=== PATIENT | male | born 1945 | race Caucasian/White ===

== ENCOUNTER → 2017-07-31 | Day surgery (SDC) | payer OTHER ==
[~2017-07-31] MED LIST: ACETAMINOPHEN 500 MG TAB PO ONE; ACETAMINOPHEN 500 MG TAB PO SCH; ATORVASTATIN CALCIUM 20 MG TAB PO SCH; BACITRACIN 50,000 UNITS/10 ML SYR IRR ONE; BISACODYL 10 MG SUPP PR PRN; BUPIVACAINE 0.25% 30 ML SDV ONE; DEXAMETHASONE 4 MG/ML VIAL ONE; ENOXAPARIN 40 MG/0.4 ML SYR SC SCH; FAMOTIDINE 20 MG TAB PO SCH; GABAPENTIN 300 MG CAP PO ONE; GABAPENTIN 300 MG CAP PO SCH; HYDROCODONE/APAP 5/325 TAB PO PRN; HYDROmorphONE/DILAUDID 1 MG/ML INJ IVP PRN; HYDROmorphONE/DILAUDID 2 MG/ML INJ ONE; HYDROmorphONE/DILAUDID 6 MG/30 ML PCA IV PRN; LACTULOSE 20 GM/30 ML UDCUP PO PRN; LIDOCAINE 1% 2 ML INJ ID PRN; LR 1,000 ML IV ONE; MAGNESIUM HYDROXIDE 30 ML UDCUP PO PRN; METHOCARBAMOL 750 MG TAB PO PRN; MIDAZOLAM 2 MG/2 ML VIAL IVP ONE; NALOXONE HCL 0.4 MG/ML INJ IVP PRN; NIACIN 500 MG TAB PO SCH; NS W/ 20 KCl/L 1,000 ML IV SCH; ONDANSETRON 4 MG/2 ML VIAL IVP PRN; ONDANSETRON 4 MG/2 ML VIAL ONE; ONDANSETRON DISINTEGRATING 4 MG TAB PO PRN; POLYETHYLENE GLYCOL 3350 17 GM PKT PO PRN; PROPOFOL 200 MG/20 ML VIAL ONE; ROCURONIUM 50 MG/5 ML VIAL ONE; SENNOSIDES/DOCUSATE SODIUM TAB PO SCH; THROMBIN (BOVINE) 20,000 UNIT VIAL TP ONE; ceFAZolin 2 GM/DEXTROSE 100 ML IV ONE; ceFAZolin 2 GM/DEXTROSE 100 ML IV SCH; diphenhydrAMINE 25 MG CAP PO PRN; fentaNYL 100 MCG/2 ML INJ ONE; oxyCODONE IR 5 MG TAB PO PRN
--- NOTE | 2017-07-31 06:46 | PDHPUP ---
History & Physical Update H&P update statement: This history and physical update is based on an assessment of the patient which was completed after admission or registration (within 24 hours), but prior to the surgery/procedure. H&P update: H&P reviewed & patient examined, no change in patient's condition since H&P completed
--- NOTE | 2017-07-31 12:47 | PDANEPAE ---
ANE History of Present Illness cervical spine stenosis ANE Past Medical History - Cardiovascular History Hx Hypertension: Yes Hx Arrhythmias: No Hx Chest Pain: No Hx Coronary Artery / Peripheral Vascular Disease: No Hx CHF / Valvular Disease: Yes Hx Palpitations: No Cardiovascular History Comment: AORTIC STENOSIS - Pulmonary History Hx COPD: No Hx Asthma/Reactive Airway Disease: No Hx Recent Upper Respiratory Infection: No Hx Oxygen in Use at Home: No Hx Sleep Apnea: No Sleep Apnea Screening Result - Last Documented: Positive - Neurologic History Hx Cerebrovascular Accident: No Hx Seizures: No Hx Dementia: No - Endocrine History Hx Diabetes: No - Renal History Hx Renal Disorders: No Renal History Comment: NOCTURIA - Liver History Hx Hepatic Disorders: No - Neurological & Psychiatric Hx Hx Neurological and Psychiatric Disorders: No - Cancer History Hx Cancer: Yes Cancer History Comment: PULMONARY SARCOIDOSIS - Congenital Disorder History Hx Congenital Disorders: No - GI History Hx Gastrointestinal Disorders: No - Other Health History Other Health History: ROSACEA. BALANCE ISSUES - Chronic Pain History Chronic Pain: Yes (CERVICAL,TIMOTHY SHLDRS,NT IN FINGERS) - Surgical History Prior Surgeries: TIMOTHY KNEE ARTHROSCOPY. REMVL PULMONARY SARCOIDOSIS 1974 ANE Review of Systems Review of Systems: - Exercise capacity METS (RN): 4 METS ANE Patient History - Allergies Allergies/Adverse Reactions: No Known Allergies Allergy (Unverified 07/26/17 10:20) - Home Medications Home Medications: Aspirin [Aspirin 81mg (*)] 81 mg PO DAILY 07/26/17 [Last Taken Unknown] Atorvastatin Calcium [Lipitor 20 mg (*)] 20 mg PO DAILY 07/26/17 [Last Taken Unknown] Azelaic Acid [Finacea] 1 riri TP DAILY 07/26/17 [Last Taken Unknown] Glucosamine Sulfate [Glucosamine Sulfate 500 MG (*)] 500 mg PO DAILY 07/26/17 [ Last Taken Unknown] Glucosamine/Chondroitin [Glucosamine/Chondroitin (*)] 1 each PO DAILY 07/26/17 [ Last Taken Unknown] Herbals/Supplements -Info Only 1 ea PO DAILY 07/26/17 [Last Taken Unknown] Multivitamins [Multivitamin (*)] 1 each PO DAILY 07/26/17 [Last Taken Unknown] Niacin [Niacin 500 mg (*)] 500 mg PO DAILY 07/26/17 [Last Taken Unknown] - Smoking Hx Smoking Status: Former smoker ANE Labs/Vital Signs - Vital Signs Height: 165.1 cm Weight: 63.503 kg ANE Physical Exam - Airway Neck exam: FROM Mallampati Score: Class 2 Mouth exam: normal dental/mouth exam - Pulmonary Pulmonary: no respiratory distress - Cardiovascular Cardiovascular: regular rate and rhythym - ASA Status ASA Status: III ANE Anesthesia Plan Anesthesia Plan: general endotracheal anesthesia
[2017-07-31 13:23] VITALS: BP 123/101; PULSE 75; RESP 16; TEMP 98.1; O2SAT 96
== END | disposition home or self-care (01) ==
LOC: F3N 11:28 → UNDOADMIN 11:28 → FSGY 11:28 → EDSTATUS 13:30
PROVIDERS: ATTEND Neurological Surgery
DX: G95.89 Other specified diseases of spinal cord (principal); M48.02 Spinal stenosis, cervical region; Z53.09 Procedure and treatment not carried out because of other contraindication
CPT/HCPCS: J0171; J0690; J1100; J1170; J2250; J2405; J2704; J3010

== ENCOUNTER 2017-08-14 05:24 | Inpatient (IN) | payer OTHER ==
[2017-08-14] MEDS ORDERED: ceFAZolin 2 GM/SWFI 2 GM/20 ML SYR IVP ONE (05:36)
[2017-08-14] MEDS ORDERED: LIDOCAINE 1% 2 ML INJ ID PRN (05:37)
[2017-08-14] MEDS ORDERED: LR 1,000 ML IV ONE (05:37)
[2017-08-14] MEDS ORDERED: BUPIVACAINE 0.25% 30 ML SDV ONE (06:44)
[2017-08-14] MEDS ORDERED: THROMBIN (BOVINE) 20,000 UNIT VIAL TP ONE (06:45)
[2017-08-14] MEDS ORDERED: GABAPENTIN 300 MG CAP PO ONE (06:45)
[2017-08-14] MEDS ORDERED: BACITRACIN 50,000 UNITS/10 ML SYR IRR ONE ×2 (06:45→11:09)
[2017-08-14] MEDS ORDERED: ACETAMINOPHEN 500 MG TAB PO ONE (06:45)
--- NOTE | 2017-08-14 07:01 | PDANEPAE ---
ANE Past Medical History - Cardiovascular History Hx Hypertension: Yes Hx Arrhythmias: No Hx Chest Pain: No Hx Coronary Artery / Peripheral Vascular Disease: No Hx CHF / Valvular Disease: Yes Hx Palpitations: No Cardiovascular History Comment: AORTIC STENOSIS - Pulmonary History Hx COPD: No Hx Asthma/Reactive Airway Disease: No Hx Recent Upper Respiratory Infection: No Hx Oxygen in Use at Home: No Hx Sleep Apnea: No Sleep Apnea Screening Result - Last Documented: Positive Pulmonary History Comment: cristela triggers only. pulmonary sarcoidosis - Neurologic History Hx Cerebrovascular Accident: No Hx Seizures: No Hx Dementia: No - Endocrine History Hx Diabetes: No - Renal History Hx Renal Disorders: Yes Renal History Comment: NOCTURIA - Liver History Hx Hepatic Disorders: No - Neurological & Psychiatric Hx Hx Neurological and Psychiatric Disorders: No - Cancer History Hx Cancer: No Cancer History Comment: PULMONARY SARCOIDOSIS - Congenital Disorder History Hx Congenital Disorders: No - GI History Hx Gastrointestinal Disorders: No - Other Health History Other Health History: ROSACEA. wears glasses - Chronic Pain History Chronic Pain: Yes (CERVICAL,TIMOTHY SHLDRS,NT IN FINGERS) - Surgical History Prior Surgeries: TIMOTHY KNEE ARTHROSCOPY. REMVL PULMONARY SARCOIDOSIS 1974 ANE Review of Systems Review of Systems: - Exercise capacity METS (RN): 4 METS ANE Patient History - Allergies Allergies/Adverse Reactions: No Known Allergies Allergy (Verified 08/06/17 11:45) - Home Medications Home Medications: Aspirin [Aspirin 81mg (*)] 81 mg PO DAILY 07/26/17 [Last Taken 07/26/17] Atorvastatin Calcium [Lipitor 20 mg (*)] 20 mg PO DAILY 07/26/17 [Last Taken 04:00] Azelaic Acid [Finacea] 1 riri TP DAILY 07/26/17 [Last Taken 08/14/17 04:00] Glucosamine Sulfate [Glucosamine Sulfate 500 MG (*)] 500 mg PO DAILY 07/26/17 [ Last Taken Unknown] Glucosamine/Chondroitin [Glucosamine/Chondroitin (*)] 1 each PO DAILY 07/26/17 [ Last Taken Unknown] Herbals/Supplements -Info Only 1 ea PO DAILY 07/26/17 [Last Taken Unknown] Multivitamins [Multivitamin (*)] 1 each PO DAILY 07/26/17 [Last Taken Unknown] Niacin [Niacin 500 mg (*)] 500 mg PO DAILY 07/26/17 [Last Taken 07/14/17] - NPO status NPO Since - Liquids (Date): 08/13/17 NPO Since - Liquids (Time): 22:00 NPO Since - Solids (Date): 08/13/17 NPO Since - Solids (Time): 22:00 - Smoking Hx Smoking Status: Former smoker - Family Anes Hx Family Hx Anesthesia Complications: none ANE Labs/Vital Signs - Vital Signs Blood Pressure: 171/87 Heart Rate: 70 Respiratory Rate: 16 O2 Sat (%): 96 Height: 165.1 cm Weight: 63.503 kg ANE Physical Exam - Airway Mallampati Score: Class 2 - ASA Status ASA Status: II ANE Anesthesia Plan Anesthesia Plan: general endotracheal anesthesia
[2017-08-14] MEDS ORDERED: MIDAZOLAM 2 MG/2 ML VIAL ONE (07:14)
[2017-08-14] MEDS ORDERED: fentaNYL 100 MCG/2 ML INJ ONE ×3 (07:14→12:27)
[2017-08-14] MEDS ORDERED: PROPOFOL 200 MG/20 ML VIAL ONE (07:15)
[2017-08-14] MEDS ORDERED: PROPOFOL/EMULSION 500 MG/50 ML BOTTLE IV ONE ×2 (07:15→10:00)
[2017-08-14] MEDS ORDERED: ONDANSETRON 4 MG/2 ML VIAL ONE (07:20)
[2017-08-14] MEDS ORDERED: ROCURONIUM 50 MG/5 ML VIAL ONE (07:20)
[2017-08-14] MEDS ORDERED: METOCLOPRAMIDE 10 MG/2 ML VIAL ONE (07:20)
[2017-08-14] MEDS ORDERED: ONDANSETRON DISINTEGRATING 4 MG TAB PO PRN (07:26)
[2017-08-14] MEDS ORDERED: oxyCODONE IR 5 MG TAB PO PRN (07:26)
[2017-08-14] MEDS ORDERED: NALOXONE HCL 0.4 MG/ML INJ IVP PRN ×2 (07:26→12:05)
[2017-08-14] MEDS ORDERED: METHOCARBAMOL 750 MG TAB PO PRN (07:26)
[2017-08-14] MEDS ORDERED: LACTULOSE 20 GM/30 ML UDCUP PO PRN (07:26)
[2017-08-14] MEDS ORDERED: HYDROmorphONE/DILAUDID 1 MG/ML INJ IVP PRN (07:26)
[2017-08-14] MEDS ORDERED: diphenhydrAMINE 25 MG CAP PO PRN (07:26)
[2017-08-14] MEDS ORDERED: ONDANSETRON 4 MG/2 ML VIAL IVP PRN (07:26)
[2017-08-14] MEDS ORDERED: POLYETHYLENE GLYCOL 3350 17 GM PKT PO PRN (07:26)
[2017-08-14] MEDS ORDERED: HYDROmorphONE/DILAUDID 6 MG/30 ML PCA IV PRN (07:26)
[2017-08-14] MEDS ORDERED: HYDROCODONE/APAP 5/325 TAB PO PRN (07:26)
[2017-08-14] MEDS ORDERED: BISACODYL 10 MG SUPP PR PRN (07:26)
[2017-08-14] MEDS ORDERED: NS W/ 20 KCl/L 1,000 ML IV SCH (07:30)
[2017-08-14] MEDS ORDERED: HYDROmorphone HCL/NS/PF 0.4 MG/2 ML SYR IVP PRN (08:30)
--- NOTE | 2017-08-14 08:55 | GOP ---
[f rep st] OPERATIVE REPORT DATE OF OPERATION: SURGEON: Omkar Pelayo MD PREOPERATIVE DIAGNOSIS: POSTOPERATIVE DIAGNOSIS: PROCEDURE PERFORMED: FINDINGS: DESCRIPTION OF PROCEDURE: This is a gentleman who is admitted and undergone general anesthesia for back surgery and had a diffi cult catheterization, so they request that I see him. Upon visiting the operating room, the patient was asleep and intubated and he had blood per urethra coming, and so at that point, I elected to do a cystoscopy to identify and recognize the urethral anatomy. And after evacuating the clot from his u rethra with a flexible cystoscope, it noted he had a false passage in the prostatic urethra. I was a ble to negotiate beyond that into the bladder. The bladder had blood in it and it was not possible f or me to get a good visualization of the bladder in total, but I was able to pass a 0.035 guidewire i nto the bladder through the scope and then a Councill-tip catheter was passed over that and into the bladder and the bladder drained well. A 10 cc balloon inflated. I did send a routine urine culture. He had received antibiotics prior to this procedure. The only report from a genitourinary standpoi nt, is has had nocturia. At the present time, we would recommend he have follow up with us as an out patient. I would recommend that he be ambulating prior to removing his catheter, since catheterizati on may be difficult if he has to go into retention and has to have another problem. Also significanc e on exam, he appeared he had an abdominal mass that was approximately 5 cm in diameter. It was felt that it may be related to his colon and would recommend further assessment evaluation postoperativel y. /[id number]/MODL
[2017-08-14] MEDS ORDERED: PROMETHAZINE HCL 25 MG/ML INJ IVP PRN (12:05)
[2017-08-14] MEDS ORDERED: fentaNYL 100 MCG/2 ML INJ IVP PRN (12:05)
[2017-08-14] MEDS ORDERED: LR 500 ML IV PRN (12:05)
--- NOTE | 2017-08-14 12:08 | POSTANESTH ---
Post Anesthetic Evaluation Cardiovascular Status: Normal, Stable Respiratory Status: Normal, Stable Level of Consciousness/Mental Status: Can Participate in Eval Pain Control: Adequate, Prn Tx Ordered Nausea/Vomiting Control: Adequate, Prn Tx Ordered Complications Possibly Related to Anesthesia: None Noted
[2017-08-14] MEDS ORDERED: hydrALAZINE 20 MG/ML VIAL IVP PRN ×2 (12:13→23:53)
--- NOTE | 2017-08-14 12:16 | SOAPPROG ---
SOAP Progress Note Assessment/Plan: Post Op Visit: S: Awake and alert. Pt with expected neck pain. O: AFVSS/PERRLA/EOMI no droop CN 2-12 grossly intact +lt touch 5/5 BUE/BLE = CDI A/P: 71 yo male that is s/p ACDF C3-C6 -orders in place -seen by Dr Crespo -Dr Pelayo placed a queen from urology and noted a "mass in the abd"-Dr Richards consulted -call with any questions or concerns -take medications as directed 08/14/17 12:13 Objective: Vital Signs Temp Pulse Resp BP Pulse Ox 36.6 C 70 16 171/87 H 96 08/14/17 06:19 08/14/17 07:00 08/14/17 07:00 08/14/17 07:00 08/14/17 07:00 ICD10 Worksheet Patient Problems: Problems Problem Status Onset Arthrodesis status Acute Cervical stenosis of spine Acute - ICD10 Problem Qualifiers (1) Cervical stenosis of spine (2) Arthrodesis status
[2017-08-14] MEDS ORDERED: hydrALAZINE 20 MG/ML VIAL ONE (12:38)
[2017-08-14] MEDS: SENNOSIDES/DOCUSATE SODIUM TAB PO SCH ×2 (13:46→22:18)
[2017-08-14] MEDS: AZELAIC ACID TP SCH (13:46)
[2017-08-14] MEDS: NIACIN 500 MG TAB PO SCH (13:46)
[2017-08-14] MEDS: ATORVASTATIN CALCIUM 20 MG TAB PO SCH (13:46)
[2017-08-14] MEDS: ceFAZolin 2 GM/DEXTROSE 100 ML IV SCH (15:05)
[2017-08-14] MEDS: TAMSULOSIN HCL 0.4 MG CAP PO SCH (15:05)
[2017-08-14] MEDS: GABAPENTIN 300 MG CAP PO SCH ×2 (15:05→22:18)
[2017-08-15] MEDS: ceFAZolin 2 GM/DEXTROSE 100 ML IV SCH (00:07)
--- NOTE | 2017-08-15 03:40 | GOP ---
[f rep st] OPERATIVE REPORT DATE OF OPERATION: 08/14/2017 SURGEON: Ida Crespo MD NEUROSURGEON: Cristi Crespo MD LAUNCH MANAGER: Emil Pacheco PA-C PREOPERATIVE DIAGNOSIS: Severe cervical spondylosis with cervical myelopathy, myelomalacia, and cord compression. POSTOPERATIVE DIAGNOSIS: Severe cervical spondylosis with cervical myelopathy, myelomalacia, and cor d compression. PROCEDURE PERFORMED: 1. Anterior cervical diskectomy with decompression and arthrodesis of the same levels, C3-4, C4-5, a nd C5-6 (71420 and 25097 x 2). 2. Anterior cervical instrumentation of 4 levels, C3, C4, C5, and C6 (69315). 3. Placement of biomechanical intervertebral device, C3-4, C4-5, and C5-6 (86294 x3). 4. Same incision bone graft harvest, microscope. FINDINGS: ESTIMATED BLOOD LOSS: 100 mL INDICATIONS: Chely is a 71-year-old gentleman with gait disturbance and left greater than right upp er extremity numbness and tingling. An MRI demonstrated evidence of cord compression and myelomalaci a in the cervical spinal cord. There was very severe stenosis at C3-4 and severe stenosis at C4-5 an d C5-6 as well as severe cervical spondylosis and degenerative disk disease. There was moderate sten osis at C6-7, but I suggested surgery at the top 3 levels. The risk of pseudoarthrosis, adjacent seg ment disease, and the need for future surgery was discussed. He knew there was risk of esophageal in jury, carotid injury, recurrent laryngeal nerve injury, hematoma, and the risk of swallowing dysfunct ion. He wanted to proceed, despite the risks. The patient had been previously scheduled 2 weeks myriam or to today, but unfortunately his n.p.o. status was compromised at the last surgery and he was delay ed by 2 weeks as we were unable to complete it. DESCRIPTION OF PROCEDURE: The patient was taken to the operating room, placed in the supine position , and general anesthesia was begun. A midline shoulder roll was placed. There was difficulty placin g the Fitzgerald catheter and Urology was consulted. They did place a Fitzgerald catheter and they felt that t here could be a possible abdominal mass as they were palpating the bladder. It was unclear if this w as simply stool in the colon or an abdominal mass and they suggested a general surgical consult follo wing surgery, which was done. His arms were tucked to the side. His neck was sterilely prepped and draped in the usual fashion. We made a transverse incision on the right side of the neck. The subcu taneous tissue was dissected with Bovie cautery down through the platysma. We then used a combinatio n of sharp and blunt dissection to work our way down to the prevertebral space. The dissection was s traightforward. We swept the omohyoid muscle inferiorly. We were able to visualize the C3-4, C4-5, and C5-6 levels easily on the x-ray that was taken. There was really remarkable bone spurs, particul navya at C4-5. We had dissected the longus colli muscles off the spine and then drilled away all the ventral spurs at C3-4, C4-5, and C5-6. We harvested these for autologous grafting purposes. We plac ed a distraction pin at C3-4 and distracted at C3-4. Under the operating microscope we removed the C 3-4 disk and its cartilaginous endplates completely. Motor and somatosensory-evoked potentials were checked throughout surgery and the left hand had very diminished responses throughout surgery, but ev en before beginning surgery the left hand was diminished. An arterial line had been placed to keep t he maps elevated, which was done at the beginning of surgery. We did completely remove the C3-4 disk and its cartilaginous endplates. We drilled and harvested subchondral bone for more autologous inna ting and drilled the uncinate processes and worked our way down the PLL, which we opened, and decompr essed the central thecal sac and the neural foramina bilaterally. We chose an 8 mm PEEK intervertebr al device, packed it with bone autograft, and inserted it at C3-4. A nice fit was obtained. We then moved our distraction pins and we did the exact same thing at C4-5 where we drilled and completely r emoved the disk and the cartilaginous endplates. We drilled subchondral bone from uncinate process t o uncinate process. We harvested the bone, opened the PLL, and decompressed the thecal sac and the n eural foramen bilaterally. We then did likewise at C5-6, moving our distraction pins down to C5-6. We removed the disk and the cartilaginous endplates completely, drilled and harvested subchondral bon e, and then opened the PLL and decompressed the neural foramina bilaterally at C5-6. We chose an 8 m m device for C4-5 and a 7 mm device for C5-6, which were packed with bone autograft and inserted with a nice fit obtained. An x-ray was taken. We then prepared the ventral surface of the vertebral bod y for acceptance of the plate. Much of this work had already been done, but we did spend some time a dditionally cleaning up the ventral surface of the vertebral body. I chose a 57 mm plate, checked it s size, using fluoroscopic images, increased the lordosis on the plate, and then placed 15 mm screws, one at C3 and one at C6. I checked an x-ray and was happy with the positioning of the screws. We t hen placed the remaining 6 screws after the 2 initial screws were placed and they were all locked acc ording to company specification. We achieved meticulous hemostasis in the prevertebral space. We pa cked bony autograft next to the plate on both sides. A final x-ray was taken, all of the hardware wa s in good position, and there was excellent cervical lordosis. We had reduced some of the retrolisth esis at C4 and C5 and pulled C4 up onto the plate itself. We then placed epinephrine with Marcaine i n the prevertebral space and then closed with interrupted Vicryl sutures in multiple layers. Steri-S trips were applied to the skin and the patient was reversed from anesthesia, extubated, and transferr ed to the recovery room in stable condition. COMPLICATIONS: None. INSTRUMENTATION USED: [employer] Zevo 57 mm plate and a 15 mm screw with [employer] anatomic PEEK cage s. /[id number]/MODL
[2017-08-15 05:05] LABS: % IMMATURE GRANULYOCYTES 0.4 % (0.0-1.1); ABSOLUTE IMMATURE GRANULOCYTES 0.04 10^3/uL (0.00-0.10); ADD DIFF? NO; ADD MORPH? NO; ADD SCAN? NO; ATYPICAL LYMPHOCYTE FLAG 0 (0-99); FRAGMENT RBC FLAG 0 (0-99); HEMATOCRIT 38.6 % (40.0-51.0); LEFT SHIFT FLG 0 (0-99); LIPEMIA HEMOLYSIS FLAG 80 (0-99); MEAN CELL HEMOGLOBIN 31.6 pg (27.9-34.1); MEAN CELL HEMOGLOBIN CONCENTR. 33.7 g/dL (32.4-36.7); MEAN CELL VOLUME 93.7 fL (81.5-99.8); MEAN PLATELET VOLUME 10.4 fL (8.7-11.7); PLATELET CLUMPS FLAG 0 (0-99); PLATELET COUNT 210 10^3/uL (150-400); RED BLOOD CELL COUNT 4.12 10^6/uL (4.40-6.38); RED CELL DISTRIBUTION WIDTH 13.2 % (11.5-15.2)
[2017-08-15] MEDS: GABAPENTIN 300 MG CAP PO SCH ×3 (05:16→22:24)
[2017-08-15 05:26] LABS: ANION GAP 13 mEq/L (8-16); CALCIUM 8.7 mg/dL (8.5-10.4); CARBON DIOXIDE 22 mEq/l (22-31); CHLORIDE 108 mEq/L (97-110); CREATININE 0.8 mg/dL (0.7-1.3); GLOMERULAR FILTRATION RATE > 60; GLUCOSE 109 mg/dL (70-100); POTASSIUM 4.4 mEq/L (3.5-5.2); SODIUM 143 mEq/L (134-144)
--- NOTE | 2017-08-15 07:50 | NEUSURGPN ---
Date of Surgery: 08/14/17 Post Op Day: 1 Assessment/Plan: Assessment: 71 yo male that is s/p ACDF C3-C6 POD #1 Plan: -s/p ACDF-pt doing well this am -Dr Crespo spoke with Dr Pelayo and Dr Richards and ok to pull drain -PT/OT/ST ordered -post op xrays pending -collar at all times -orders in place -seen/examined by Dr Crespo -Dr Pelayo placed a queen from urology and noted a "mass in the abd"-Dr Richards consulted and is seeing pt now -call with any questions or concerns -take medications as directed 08/14/17 12:13 Subjective: Awake and alert. NAD. Eating/drinking and voiding. No f/c/n/v/d. No carbajal/neck/ chest/abd or gu complaints. Objective: AFVSS/PERRLA/EOMI no droop CN 2-12 grossly intact +lt touch 5/5 BUE/BLE = neck soft and supple CDI Neuro Check Frequency: per routine Urinary Catheter in Place: Yes Urinary Catheter Indication: Other (Use Comment) (Dr Crespo/Pierce ordered to pull this am) Catheter Insertion Date: 08/14/17 - Physician Discussed Patient with : Zak Patient Seen by : Zak Neurosurgery Physical Exam - Vitals, I&O, Labs I and O 08/14/17 08/15/17 08/16/17 05:59 05:59 05:59 Intake Total 3540 Output Total 2200 Balance 1340 Weight 63.503 kg Intake: Oral (ml) 500 IV Intake (ml) 1650 IV Infused (ml) 1390 NS W/ 20 KCl/L 1,000 ml @ 1390 75 mls/hr IV CONT MARGOT Rx #:[id number] Output: Urine (ml) 2100 Catheter 2100 Estimated Blood Loss (ml) 100 Vital Signs Temp Pulse Resp BP Pulse Ox 36.7 C 87 18 121/69 H 94 08/15/17 04:37 08/15/17 04:37 08/15/17 04:37 08/15/17 04:37 08/15/17 04:37 Laboratory Results 08/15/17 04:34 08/15/17 04:34 ICD10 Worksheet Patient Problems: Problems Problem Status Onset Arthrodesis status Acute Cervical stenosis of spine Acute - ICD10 Problem Qualifiers (1) Cervical stenosis of spine (2) Arthrodesis status
[2017-08-15] MEDS: TAMSULOSIN HCL 0.4 MG CAP PO SCH (08:08)
[2017-08-15] MEDS: NIACIN 500 MG TAB PO SCH (08:08)
[2017-08-15] MEDS: SENNOSIDES/DOCUSATE SODIUM TAB PO SCH ×2 (08:08→20:24)
[2017-08-15] MEDS: ATORVASTATIN CALCIUM 20 MG TAB PO SCH (08:08)
--- NOTE | 2017-08-15 08:28 | SOAPPROG ---
SUNNY Progress Note Assessment/Plan: Assessment: will dictate full consult In brief, 71 year old had abdominal mass palpated when getting catheter placed. Asymptomatic. Small soft mass palpated above pubis. WIll order ultrasound Plan: 08/15/17 08:27 Objective: Vital Signs Temp Pulse Resp BP Pulse Ox 37.1 C 89 18 140/74 H 92 08/15/17 08:00 08/15/17 08:00 08/15/17 08:00 08/15/17 08:00 08/15/17 08:00 Laboratory Results 08/15/17 04:34 08/15/17 04:34 08/14/17 08/15/17 08/16/17 05:59 05:59 05:59 Intake Total 3540 Output Total 2200 725 Balance 1340 -725 ICD10 Worksheet Patient Problems: Problems Problem Status Onset Arthrodesis status Acute Cervical stenosis of spine Acute
[2017-08-15] MEDS: AZELAIC ACID TP SCH (11:20)
[2017-08-15] MEDS ORDERED: FLU VACC QS 2017-18 (3YR+)/PF 0.5 ML SYR (FLUARIX QUAD) IM ONE ×2 (11:58→14:00)
[2017-08-15] MEDS ORDERED: PNEUMOC 13-VAL CONJ-DIP CRM/PF 0.5 ML SYR IM ONE (11:58)
[2017-08-15] MEDS ORDERED: IOPAMIDOL (ISOVUE-300) 100 ML BTL ONE (13:14)
--- NOTE | 2017-08-15 14:04 | ASMTCMCOM ---
CM Note CM Note Notes: OT/[employer] rec home, PT rec outpatient. Anticipate pt will d/c when medically stable, no CM d/c needs identified at this time. CM available for changes/needs. Date Signed: 08/15/2017 02:03 PM Electronically Signed By:SHAE Barajas
--- NOTE | 2017-08-15 14:22 | GCON ---
[f rep st] CONSULTATION DATE OF CONSULTATION: 08/15/2017 REFERRING PHYSICIAN: Ida Crespo MD CHIEF COMPLAINT: Abdominal mass. HISTORY OF PRESENT ILLNESS: The patient is a 71-year-old male who recently underwent ACDF on August 14, 2017. While in the operating room, there was difficulty passing a Fitzgerald catheter and Urology was consulted. Urology was able to place the catheter but did feel the patient had an abdominal mass so general surgery was consulted. The patient does report history of BPH. States his PSA was found to be elevated last year and he was instructed to follow up with Urology as an outpatient. He last saw Urology earlier this year and states his PSA was still elevated but stable. He reports associated urinary retention and nocturia. Denies any hematuria, lower abdominal pain or burning with urination. No fever, chills, chest pain, shortness of breath, diarrhea, constipation, nausea, or vomiting. Not currently on medications for BPH at home. PAST MEDICAL HISTORY: Hyperlipidemia, rosacea, BPH. ALLERGIES: No known drug allergies. MEDICATIONS: Lipitor 20 mg, aspirin 81 mg, niacin 500 mg. SOCIAL HISTORY: Nonsmoker. FAMILY MEDICAL HISTORY: Mother passed from basal cell carcinoma. Father passed from unknown cause. REVIEW OF SYSTEMS: Denies fever or chills. Denies shortness of breath or cough. Denies chest pain. Denies abdominal pain, nausea, vomiting, diarrhea, constipation or change in bowel habits. Does report urinary retention and nocturia, denies hematuria, denies dysuria. PHYSICAL EXAM: VITAL SIGNS: Blood pressure 121/69, heart rate 87, respiratory rate 18, O2 saturation 94, O2 delivery mode nasal cannula, temperature 36.7 Celsius. GENERAL: Well-developed, well-nourished man in no distress, resting comfortably. SKIN: Warm and dry. HEENT: Atraumatic, pupils equal and round , no scleral icterus, mucous membranes moist, no gross hearing deficits NECK: In C-collar. RESPIRATORY: Clear to auscultation bilaterally, no increased work of breathing. CARDIAC: Regular rate and rhythm, 2/6 systolic murmur. ABDOMEN: Nontender, normal bowel sounds. Suprapubic fullness, no distinct masses palpated. MUSCULOSKELETAL: Normal strength, moving all extremities. NEUROLOGIC: Alert and appropriate, Psych: Mood and affect normal ASSESSMENT: 71-year-old man with abdominal mass palpated by Urology with some fullness. PLAN: I will order an ultrasound to further evaluate mass and, depending on ultrasound results, may order additional imaging at that time. /[id number]/MODL MTDD
--- NOTE | 2017-08-15 19:10 | SOAPPROG ---
SUNNY Progress Note Assessment/Plan: Assessment: Discussed results with Chely. 1) Stool in colon 2) Liver lesions - likely hemangioma. MRI in future. Will follow up with PCP 3) Possible low grade diverticulitis. Asymptomatic. No tx needed 4)? Crohns. Would be unusual presentation. F/U PCP Will sign off Plan: 08/15/17 08:27 08/15/17 19:08 Objective: Vital Signs Temp Pulse Resp BP Pulse Ox 37.1 C 84 12 140/78 H 95 08/15/17 15:48 08/15/17 15:48 08/15/17 15:48 08/15/17 15:48 08/15/17 15:48 Laboratory Results 08/15/17 04:34 08/15/17 04:34 08/14/17 08/15/17 08/16/17 05:59 05:59 05:59 Intake Total 3540 750 Output Total 2200 1250 Balance 1340 -500 ICD10 Worksheet Patient Problems: Problems Problem Status Onset Arthrodesis status Acute Cervical stenosis of spine Acute
[2017-08-16 01:14] VITALS: RESP 16; TEMP 98.2
[2017-08-16] MEDS: GABAPENTIN 300 MG CAP PO SCH (05:27)
[2017-08-16 07:43] VITALS: BP 167/87; PULSE 76; O2SAT 95
--- NOTE | 2017-08-16 08:05 | NEUSURGPN ---
Assessment/Plan: Assessment: 71 yo male that is s/p ACDF C3-C6 POD #2 Plan: -s/p ACDF-pt doing well this am -PT/OT/ST ordered -post op xrays show stable hardware -collar at all times -orders in place -follow up with PCP as outpatient per Dr Richards's recs. Appreciate Dr. Richards assisting in the care of this patient. -call with any questions or concerns -Will DC today -D/w Dr Crespo Subjective: Pt resting in bed, states hands are improving after surgery Objective: AAOx3 NAD VSS MAEx4 Motor 5/5 BUE Incision cdi steri strips intact C collar on Urinary Catheter in Place: No Catheter Insertion Date: 08/14/17 - Physician Discussed Patient with : Zak Neurosurgery Physical Exam - Vitals, I&O, Labs I and O 08/15/17 08/16/17 08/17/17 05:59 05:59 05:59 Intake Total 3540 1100 Output Total 2200 1250 Balance 1340 -150 Weight 63.503 kg Intake: Oral (ml) 500 1100 IV Intake (ml) 1650 IV Infused (ml) 1390 NS W/ 20 KCl/L 1,000 ml @ 1390 75 mls/hr IV CONT MARGOT Rx #:[id number] Output: Urine (ml) 2100 1200 Catheter 2100 1100 Urinal 100 Estimated Blood Loss (ml) 100 Emesis (ml) 50 Other: Intake Quantity No: Nausea all day Sufficient Number of Voids Catheter 1 Toilet 2 Urinal 1 Number of Emesis 4 Occurrences Vital Signs Temp Pulse Resp BP Pulse Ox 36.8 C 76 16 167/87 H 95 08/16/17 07:42 08/16/17 07:42 08/16/17 07:42 08/16/17 07:42 08/16/17 07:42 Laboratory Results 08/15/17 04:34 08/15/17 04:34 ICD10 Worksheet Patient Problems: Problems Problem Status Onset Arthrodesis status Acute Cervical stenosis of spine Acute
[2017-08-16] MEDS: NIACIN 500 MG TAB PO SCH (10:33)
[2017-08-16] MEDS: ATORVASTATIN CALCIUM 20 MG TAB PO SCH (10:33)
[2017-08-16] MEDS: TAMSULOSIN HCL 0.4 MG CAP PO SCH (10:33)
[2017-08-16] MEDS: AZELAIC ACID TP SCH (10:37)
[2017-08-16] MEDS: SENNOSIDES/DOCUSATE SODIUM TAB PO SCH (10:40)
--- NOTE | 2017-08-16 12:11 | ASDISCHSUM ---
Discharge Information Plan Status:Home with No Needs Medically Cleared to Leave: Discharge Date:08/16/2017 11:32 AM CM D/C Disposition:Home, Routine, Self-Care ADT D/C Disposition:Home, Routine, Self-Care Projected Discharge Date:08/16/2017 11:32 AM Transportation at D/C: Discharge Delay Reason: Follow-Up Date:08/16/2017 11:32 AM Discharge Slot: Final Diagnosis: Placement Information Patient Contact Information Contact Name:DOM Relationship: Address:[address] Work Phone: [facility] Phone: [facility]/Zip Code:[place] [address] Email: Financial Information Financial Class:HMO and PPO Plans Primary Plan Desc:[employer] Primary Plan Number:[id number] Secondary Plan Desc:MEDICARE INPATIENT Secondary Plan Number:[id number] Assessment Information [facility] CM Progress Note CM Note CM Note Notes: OT/[employer] rec home, PT rec outpatient. Anticipate pt will d/c when medically stable, no CM d/c needs identified at this time. CM available for changes/needs. Date Signed: 08/15/2017 02:03 PM Electronically Signed By:SHAE Barajas Intervention Information Intervention Type:*IM-Signed Date of Service:08/16/2017 09:41 AM Patient Type:Inpatient Staff Member:Jennifer Helton Hours: Discipline: Severity: Comment:
[2017-08-17] MEDS ORDERED: ENOXAPARIN 40 MG/0.4 ML SYR SC SCH (09:00)
== END 2017-08-16 11:32 | disposition home or self-care (01) | DRG 473 ==
LOC: F3N 05:24
PROVIDERS: ADMIT Neurological Surgery; ATTEND Neurological Surgery
PROC: 0TCD8ZZ Extirpation of Matter from Urethra, Via Natural or Artificial Opening Endoscopic (ICD-10-PCS; principal; 2017-08-14 07:30)
PROC: 0RG20A0 Fusion of 2 or more Cervical Vertebral Joints with Interbody Fusion Device, Anterior Approach, Anterior Column, Open Approach (ICD-10-PCS; principal; 2017-08-14 07:30)
PROC: 0RT30ZZ Resection of Cervical Vertebral Disc, Open Approach (ICD-10-PCS; principal; 2017-08-14 07:30)
PROC: 00NW0ZZ Release Cervical Spinal Cord, Open Approach (ICD-10-PCS; principal; 2017-08-14 07:30)
DX: M47.12 Other spondylosis with myelopathy, cervical region (principal); K59.00 Constipation, unspecified; N40.0 Benign prostatic hyperplasia without lower urinary tract symptoms; E78.5 Hyperlipidemia, unspecified; N36.5 Urethral false passage; I10 Essential (primary) hypertension; G47.33 Obstructive sleep apnea (adult) (pediatric); Z87.891 Personal history of nicotine dependence; Z23 Encounter for immunization
CPT/HCPCS: 92526-GN; 92610-GN; 97161-GP; 97165-GO; 97535-GO; C1713; C1769; G0008; G0009; G8978-GP-CI; G8979-GP-CI; G8980-GP-CI; G8987-GO-CI; G8988-GO-CI; G8989-GO-CI; G8996-GN-CI; G8997-GN-CI; J0171; J0360; J0690; J2250; J2405; J2704; J2765; J3010; Q9967

== ENCOUNTER → 2017-09-19 | Outpatient (CLI) | payer OTHER ==
[~2017-09-19] MED LIST changes: -ACETAMINOPHEN 500 MG TAB PO ONE; -ACETAMINOPHEN 500 MG TAB PO SCH; -ATORVASTATIN CALCIUM 20 MG TAB PO SCH; -BACITRACIN 50,000 UNITS/10 ML SYR IRR ONE; -BISACODYL 10 MG SUPP PR PRN; -BUPIVACAINE 0.25% 30 ML SDV ONE; -DEXAMETHASONE 4 MG/ML VIAL ONE; -ENOXAPARIN 40 MG/0.4 ML SYR SC SCH; -FAMOTIDINE 20 MG TAB PO SCH; -GABAPENTIN 300 MG CAP PO ONE; -GABAPENTIN 300 MG CAP PO SCH; +GADOBUTROL 10 ML VIAL IVP ONE; -HYDROCODONE/APAP 5/325 TAB PO PRN; -HYDROmorphONE/DILAUDID 1 MG/ML INJ IVP PRN; -HYDROmorphONE/DILAUDID 2 MG/ML INJ ONE; -HYDROmorphONE/DILAUDID 6 MG/30 ML PCA IV PRN; -LACTULOSE 20 GM/30 ML UDCUP PO PRN; -LIDOCAINE 1% 2 ML INJ ID PRN; -LR 1,000 ML IV ONE; -MAGNESIUM HYDROXIDE 30 ML UDCUP PO PRN; -METHOCARBAMOL 750 MG TAB PO PRN; -MIDAZOLAM 2 MG/2 ML VIAL IVP ONE; -NALOXONE HCL 0.4 MG/ML INJ IVP PRN; -NIACIN 500 MG TAB PO SCH; -NS W/ 20 KCl/L 1,000 ML IV SCH; -ONDANSETRON 4 MG/2 ML VIAL IVP PRN; -ONDANSETRON 4 MG/2 ML VIAL ONE; -ONDANSETRON DISINTEGRATING 4 MG TAB PO PRN; -POLYETHYLENE GLYCOL 3350 17 GM PKT PO PRN; -PROPOFOL 200 MG/20 ML VIAL ONE; -ROCURONIUM 50 MG/5 ML VIAL ONE; -SENNOSIDES/DOCUSATE SODIUM TAB PO SCH; -THROMBIN (BOVINE) 20,000 UNIT VIAL TP ONE; -ceFAZolin 2 GM/DEXTROSE 100 ML IV ONE; -ceFAZolin 2 GM/DEXTROSE 100 ML IV SCH; -diphenhydrAMINE 25 MG CAP PO PRN; -fentaNYL 100 MCG/2 ML INJ ONE; -oxyCODONE IR 5 MG TAB PO PRN
== END ==
LOC: FIMAGING 13:12
PROVIDERS: ATTEND Internal Medicine
DX: K76.9 Liver disease, unspecified (principal)
CPT/HCPCS: A9585

== ENCOUNTER 2018-06-12 14:21 | Emergency (ER) | payer OTHER, MEDICARE ==
[2018-06-12] MEDS ORDERED: NS 1,000 ML IV ONE ×2 (15:27→17:10)
[2018-06-12 15:33] LABS: PLATELET COUNT 264 10^3/uL (150-400)
--- NOTE | 2018-06-12 15:37 | EDPHY ---
H & P Stated Complaint: hematuria since , then today with blood from penis. Hx of BPH Time Seen by Provider: 06/12/18 15:07 HPI/ROS: CHIEF COMPLAINT: Bleeding from penis HISTORY OF PRESENT ILLNESS: 72-year-old male reports that 2 days ago he noted blood at the tip of his penis prior to urination. Following this he had several episodes of urinating with no blood noted. Yesterday he noted blood on his under clothing and had some difficulty voiding last night. This morning, again, he notes blood on his under clothing and blood dripping from the penis. No abdominal pain. No testicular pain. No swelling. No fever. No dysuria. No back pain. No fever, chills, chest pain, shortness of breath, palpitations, vomiting, diarrhea, urinary complaints, headache, lightheadedness. REVIEW OF SYSTEMS: A comprehensive 10 system review of systems was reviewed and is otherwise negative aside from elements mentioned in the history of present illness. PAST MEDICAL HISTORY: BPH, heart murmur, on aspirin daily. No other anticoagulants. History of pulmonary sarcoidosis. SOCIAL HISTORY: No alcohol use. VITAL SIGNS: see nurse's notes. GENERAL: Well-developed, well-nourished, in no acute distress. HEENT: Normal, no discharge or icterus, moist mucous membranes. Neck: supple, FROM. LUNGS: Clear to auscultation bilaterally, no wheezes, rhonchi or rales. CARDIAC: Regular rate and rhythm, no rubs, murmurs or gallops. ABDOMEN: Soft, nontender, nondistended, bowel sounds normal. : Normal male external genitalia. Small amount of bleeding from the meatus is noted. Bright red blood in color. Blood on the gauze pad. Testes are nontender. No scrotal swelling. BACK: No CVA tenderness. No vertebral tenderness. EXTREMITIES: No edema, FROM. NEURO: Alert and oriented, grossly nonfocal. SKIN: Warm and dry, no rash. - Personal History Current Tetanus/Diphtheria Vaccine: Unsure - Medical/Surgical History Hx Diabetes: No Hx Splenectomy or Spleen Trauma: No Other PMH: BPH, Hyperlipidemia, pulmonary sarcoidosis, C-spine surgery - Social History Smoking Status: Former smoker Constitutional: Initial Vital Signs Temperature (C) 36.3 C 06/12/18 14:33 Heart Rate 89 06/12/18 14:33 Respiratory Rate 18 13/18 14:33 Blood Pressure 137/86 H 06/12/18 14:33 O2 Sat (%) 95 06/12/18 14:33 O2 Delivery Mode Room Air Allergies/Adverse Reactions: No Known Allergies Allergy (Verified 08/06/17 11:45) Home Medications: Medication Instructions Recorded Atorvastatin Calcium [Lipitor 20 20 mg PO DAILY 07/26/17 mg (*)] Multivitamins [Multivitamin (*)] 1 each PO DAILY 07/26/17 Aspirin 81mg (*) 06/12/18 Ciprofloxacin [Cipro] 500 mg PO BID #14 tab 06/12/18 Finasteride [Proscar 5 MG (*)] 5 mg PO DAILY #30 tab 06/12/18 Medical Decision Making ED Course/Re-evaluation: Discussed patient's presentation with Dr. Santa from [facility]. Prior records [facility] indicated patient may have a urethral stricture. Patient was advised to begin taking Proscar. Patient was unable to provide a urine sample till 6:00 p.m.. Patient's urinalysis has not been resulted as of 7:30 p.m.. 2nd call was placed to the lab. Urine results no concerning for infection although significant RBC's and hyaline casts. Will place on levofloxacin pending follow up with urology. Discharged with script for Proscar and will follow up on saturday. Differential Diagnosis: Diff dx consdered including but no limited to gross hematuria, penile stricture or trauma, urethral stricture, UTI, prostatitis, urethritis, bladder cancer, occult trauma. - Data Points Laboratory Results: Laboratory Results 06/12/18 15:10 06/12/18 15:10 Medications Given: Discontinued Medications Finasteride (Proscar) 5 mg PO DAILY MARGOT Stop: 12/09/18 16:44 Last Admin: 06/12/18 17:56 Dose: Not Given Finasteride (Proscar) 5 mg PO EDNOW ONE Stop: 06/12/18 17:31 Last Admin: 06/12/18 17:10 Dose: 5 mg Sodium Chloride (Ns) 1,000 mls @ 0 mls/hr IV ONCE ONE; Wide Open PRN Reason: Protocol Stop: 06/12/18 15:28 Last Admin: 06/12/18 15:45 Dose: 1,000 mls Sodium Chloride (Ns) 1,000 mls @ 0 mls/hr IV EDNOW ONE; Wide Open PRN Reason: Protocol Stop: 06/12/18 17:11 Last Admin: 06/12/18 17:12 Dose: 1,000 mls Departure - Departure Disposition: Home, Routine, Self-Care Clinical Impression: Penile bleeding Condition: Good Instructions: Hematuria (ED) Additional Instructions: I discussed your case with [facility]. You do have a history of urethral strictures which may be what is causing your bleeding now. You been instructed to start Proscar 5 mg daily. This should help with the benign prostatic hypertrophy and also help decrease the bleeding. Please discontinue your aspirin until you are seen by Urology. Please take antibiotic as directed, ciprofloxacin, 500 mg by mouth 2 times a day to prevent infection. Please follow up on Saturday as previously scheduled with Dr. Pelayo. Wearing depends or perhaps menstrual pads will help control the bleeding. If you develop a fever, vomiting, inability to void, urinary retention with no urine output for greater than 12 hr, significant bleeding from the urethra, significant pain, or other concerns, please return to the emergency department or seek care urgently. Referrals: Edmar Post MD [Primary Care Provider] - As per Instructions Prescriptions: Ciprofloxacin [Cipro] 500 mg PO BID #14 tab Finasteride [Proscar 5 MG (*)] 5 mg PO DAILY #30 tab
[2018-06-12 16:35] LABS: INR 1.1 (0.83-1.16); PROTIME(PATIENT) 14.4 SEC (12.0-15.0)
[2018-06-12] MEDS ORDERED: FINASTERIDE 5 MG TAB PO SCH (16:45)
[2018-06-12] MEDS ORDERED: FINASTERIDE 5 MG TAB PO ONE (17:30)
[2018-06-12 20:37] VITALS: BP 154/83
== END 2018-06-12 21:00 | disposition home or self-care (01) ==
DX: R31.9 Hematuria, unspecified (principal); N40.0 Benign prostatic hyperplasia without lower urinary tract symptoms; E78.5 Hyperlipidemia, unspecified; E86.9 Volume depletion, unspecified

== ENCOUNTER → 2018-07-18 | Outpatient (CLI) | payer OTHER, MEDICARE | LOC: FIMAGING 15:39 | PROVIDERS: ATTEND Nurse Practitioner | DX: Z98.1 Arthrodesis status (principal) ==

== ENCOUNTER → 2018-07-21 | Outpatient (CLI) | payer OTHER, MEDICARE | LOC: BHFA 10:45 | PROVIDERS: ATTEND Internal Medicine Cardiovascular Disease | DX: I35.0 Nonrheumatic aortic (valve) stenosis (principal) ==